=== PATIENT | female | born 1985 | race Caucasian/White ===

== ENCOUNTER 2021-02-06 03:01 | Outpatient (CLI) | payer MEDICAID, SELFPAY | END 2021-02-06 03:02 | disposition home or self-care (01) | LOC: LBO 03:01 | PROVIDERS: PCP Family Medicine; Visit Provider Family Medicine | DX: E03.9 Hypothyroidism, unspecified (principal) | CPT/HCPCS: 36415; 84443 ==

== ENCOUNTER 2024-11-20 17:32 | Emergency (ER) | payer MEDICAID, SELFPAY ==
[2024-11-20 17:41] VITALS: BP 135/68; PULSE 83; RESP 16; TEMP 36.7; O2SAT 98
--- NOTE | 2024-11-20 18:29 | ED.GENADUL_ITS ---
Discharge Plan Disposition Patient Disposition: Home Condition: Good Discharge Details Clinical Impression: Upper respiratory virus Primary Care Provider: Sarah Posada ED Provider: Laney Wilhelm Home Meds and New Rx's Prescriptions: Continued omeprazole 20 MG tablet,delayed release (DR/EC) 20 mg PO DAILY levothyroxine 100 MCG recon soln 50 mcg PO DAILY Discharge Instructions Instructions: Upper Respiratory Infection ED Additional Instructions: Tylenol and ibuprofen over the counter for symptoms; follow the directions on the bottle. Return to the emergency department for new or worsening symptoms including fever, chest pain, difficulty breathing, feeling like you are going to pass out, inability to swallow fluids, or if you have any other concerns. Stand Alone Forms: Work Release HPI General Mode of arrival: ambulatory . Date/Time Provider Initiated Documentation: 11/20/24 17:34 . Limitations to Documentation: no limitations . Information obtained by: patient . HPI Narrative: 39yo F with hx hypothryoid presenting for cough and sore throat. Sore throat started about 10 days ago, pain with swallowing. No difficulty with fluids or secretions. Minimal appetite so not eating much, is a little painful with swallowing solids but not bad. For about a week has had frequent cough and some shortness of breath. No chest pain. No fevers. Otherwise in her usual state of health. Related Data Home Medications ?Medication ?Instructions ?Recorded ?Confirmed levothyroxine 100 mcg intravenous 50 mcg PO DAILY 07/11/17 11/20/24 powder for solution omeprazole 20 mg tablet,delayed 20 mg PO DAILY 07/11/17 11/20/24 release Allergies Allergy/AdvReac Type Severity Reaction Status Date / Time bacitracin (From Neosporin Allergy Skin Rash Unverified 11/20/24 17:44 ([id number])) bacitracin zinc (From Allergy Skin Rash Unverified 11/20/24 17:44 Neosporin (hhj-vho-[id number])) neomycin sulfate (From Allergy Skin Rash Unverified 11/20/24 17:44 Neosporin (fnl-umj-bjzui)) polymyxin B (From Neosporin Allergy Skin Rash Unverified 11/20/24 17:44 (tps-[id number])) General Stated Complaint: RespSymp LINDA: 4 Review of Systems Narrative: see HPI Exam Narrative Exam Narrative: General: Alert, well appearing, well nourished, in no acute distress. Head: Normocephalic, atraumatic Neck: Trachea midline, ?Neck supple. ENT: ?MMM.? No oropharygeal lesions or exudate. Cardiac: ?RRR, no murmurs appreciated Resp: No respiratory distress. CTAB. Extremities: ?No deformities.? Neurologic: GCS 15. ? Moves all extremities freely against gravity Course Vital Signs Vital signs: Vital Signs Temperature 36.7 C 11/20/24 17:41 Pulse 83 11/20/24 17:41 Respiratory Rate 16 11/20/24 17:41 Blood Pressure 135/68 11/20/24 17:41 Pulse Oximetry 98 11/20/24 17:41 Temperature 36.7 C 11/20/24 17:41 Pulse 83 11/20/24 17:41 Respiratory Rate 16 11/20/24 17:41 Blood Pressure 135/68 11/20/24 17:41 Pulse Oximetry 98 11/20/24 17:41 Pain Level 3 11/20/24 17:41 Medical Decision Making 39yo F with hx hypothyroid presenting for cough and sore throat for a pproximately a week. Here with her son who is sick with similar symptoms; she is more concerned about her son's symptoms than her own. Vital signs reassuring on arrival. Well appearing on exam with lungs CTAB. Not concerning for sepsis, pneumonia, epiglottis, deep space neck infection, ACS. No indication for labs or imaging. Will send respiratory viral swabs. Covid and flu negative; son did test positive for flu and suspect that Ms. Goode also had this however given duration of symptoms is now appropriately testing negative. Vital signs remain reassuring. Advised symptomatic treatment at home. Discharged home; discharge instructions and return precautions were reviewed with patient who verbalized understanding. All questions were answered and they are in full agreement with the plan. Quality:SDOH Health Related Social Needs: No Data to Display PFSH All Active Problems (Updated 11/20/24 @ 19:09 by Laney Wilhelm MD) Upper respiratory virus (Acute) Social History Smoking/Tobacco Use Status: Current every day Tobacco Type: e-cigarettes Smoking risk assessment performed?: Yes Alcohol Intake: current Alcohol Intake frequency: holidays/special occasions only Drug use: Never Substance use type: does not use Do you feel safe at home: Yes Do you feel safe in your relationship?: Yes
--- OUTSIDE RECORDS SUMMARY | 2024-11-20 18:40 | XMS_ITS | Encounter Summary ---
Author Organization [facility] [place] [address] Care Team Providers Care Assembly Line Inspector Name Role Phone Omero Manzanares DO Primary Care Provider [phone] Encounter Details Date Type Department Care Team (Late st Contact Info) Description 05/18/2016 Orders [place] [address] Van Davis MD [facility] [place] [address] Weight loss Social History Tobacco Use Types Packs/Day Years Used Date Smoking Tobacco: Every Day Cigarettes Sex and Gender Information Value Date Recorded Sex Assigned at Not on file Gender Identity Not on file Sexual Orientation Not on file documented as of this encounter Plan of Treatment Not on file documented as of this encounter Results * Hemoglobin A1c (05/18/2016 3:05 PM EDT) [facility] Hemoglobin A1c 5.4 4.3 - 5.6 % [facility] Comment: Reference Range: 4.3 - 5.6% 5.7 - 6.4% - Increased Risk of Developing Diabetes Mellitus >=6.5% - Consistent with diagnosis of Diabetes Mellitus In the absence of hyperglycemia (i.e. plasma glucose > 200 mg/dL) or classic symptoms of hyperglycemia a repeat measurement of HbA1c should be performed on a separate sample to confirm the diagnosis. Diagnosis and Classification of Diabetes Mellitus, Diabetes Care 2013; 36: Suppl. 1, S67-74 Estimated Average Glucose 108 mg/dL [facility] Comment: eAG equivalents for HbA1c percentages: HbA1c(%) ?eAG(mg/dL) 6.0 ?126 6.5 ?140 7.0 ?154 7.5 ?169 8.0 ?183 8.5 ?197 9.0 ?212 9.5 ?226 10.0 ? 240 Limitations: The eAG calculation has not been validated on women, individuals below 18 years old and above 70 years old, and individuals with hemoglobinopathies. Additional resources are available on the ADA website: http://[employer].com/DHMCadacalc Linus HAJI, Caleb J, Claudia R, et al. ??Translating the A1C assay into estimated average glucose values. ??Diabetes Care 2008:31(8):3737-3943. Blood specimen (specimen) 05/18/2016 3:05 PM EDT 05/18/2016 3:24 PM EDT Narrative Resulting Agency Comment Spec In Lab Van Davis MD CHEMISTRY ORDERABLES [facility] [place] [address] documented in this encounter Visit Diagnoses Diagnosis Weight loss Loss of weight documented in this encounter Care Teams Assembly Line Inspector Relationship Specialty Start Date End Date Omero Manzanares DO PCP - General General Internal Medicine 04/29/16 documented as of this encounter
--- OUTSIDE RECORDS SUMMARY | 2024-11-20 18:40 | XMS_ITS | Encounter Summary ---
Author Organization [facility] Address [address] [place] [address] Care Team Providers Care Railroad Signal And Switch Operator Name Role Phone Unknown, Provider Primary Care Provider Estella ilpaulette Encounter Details Date Type Department Care Team (Late st Contact Info) Description 07/09/2010 Results Only [facility] [phone] Rex Uribe, DYNAMO TENDER [address] [address] Social History Tobacco Use Types Packs/Day Years Used Date Smoking Tobacco: Never Assessed Comments Unknown Sex and Gender Information Value Date Recorded Sex Assigned at Not on file Legal Sex Female 18:46 EST Gender Identity Not on file Sexual Orientation Not on file documented as of this encounter Plan of Treatment Not on file documented as of this encounter Procedures Procedure Name Priority Date/Time Associated Diagnosis Comments CYTOPATHOLOGY Routine 07/09/2010 0:00 EDT documented in this encounter Results * CYTOPATHOLOGY (07/09/2010 0:00 EDT) Pathology Report: CYTOPATHOLOGY REPORT ? Reports generated via electronic interface contain original data; ? however they are lacking the format of the original report. ? Caution should be taken when reading/interpreti ng unformatted reports. ? Name: ? BEAUCAGE, CRYSTAL ? Accession #: ? [id number] ? : ? 1985 (Age: 24) ??F ?Collect Date: ? 07/09/2010 ? Location: ? [facility] ? Receive Date: ? 07/13/2010 ? Provider: ?REX J LEANNE DYNAMO TENDER ? Copy to: ? Specimen/Source: ?Pap Test, Cervix/Endocervix, ThinPrep Imaging System ? with manual evaluation ? Last Menstrual Period: ? Hormonal/Contracep tive Status: ? Intrauterine device ? Other: ? HPVA - HPV testing requested if ASC-US on the current ThinPrep Pap test. ? SPECIMEN ADEQUACY ? Satisfactory for Evaluation ? - transformation zone component present ? GENERAL CATEGORIZATION ? Negative for Intraepithelial Lesion or Malignancy ? INTERPRETATION ? Shift in romel present suggestive of bacterial vaginosis. ? Document reviewed and electronically signed by: ? Flor Adams, SCT(ASCP) ? Report Date: ??07/14/2010 15:13 ? End of Report ? [facility] 07/09/2010 07/13/2010 us Rex Uribe APRN PATHOLOGY ORDERABLES Final Re sult [facility] [address] [place] [address] documented in this encounter Visit Diagnoses Not on filedocumented in this encounter Care Teams Railroad Signal And Switch Operator Relationship Specialty Start Date End Date Unknown, Provider, PCP - General 07/03/09 09/19/16 documented as of this encounter
--- OUTSIDE RECORDS SUMMARY | 2024-11-20 18:40 | XMS_ITS | Referral Summary ---
Author Organization [facility] Address [address] [place] [address] Care Team Providers Care Malt House Supervisor Name Role Phone Omero Manzanares DO Primary Care Provider [phone] Social History Tobacco Use Types Packs/Day Years Used Date Smoking Tobacco: Never Assessed Interpersonal Safety Answer Date Record ed Physically Hurt Never 06/01/2020 Verbally Threaten Not on file 06/01/2020 Comments Unknown Sex and Gender Information Value Date Recorded Sex Assigned at Not on file Legal Sex Female 18:46 EST Gender Identity Not on file Sexual Orientation Not on file Plan of Treatment Not on file Care Teams Malt House Supervisor Relationship Specialty Start Date End Date Omero Manzanares DO [address] [place] [address] PCP - General 09/20/16
--- OUTSIDE RECORDS SUMMARY | 2024-11-20 18:40 | XMS_ITS | Encounter Summary ---
Author Organization [facility] Address [address] [place] [address] Care Team Providers Care Electronic Lab Technician Name Role Phone Omero Manzanares DO Primary Care Provider [phone] Encounter Details Date Type Department Care Team (Latest Contact Info) Description 01/03/2019 8:19 EST - 01/03/2019 23:59 EST Hospital Encounter [address] [address] Unknown, Provider, MD Discharge Disposition: Home or Self Care Social History Tobacco Use Types Packs/Day Years Used Date Smoking Tobacco: Never Assessed Comments Unknown Sex and Gender Information Value Date Recorded Sex Assigned at Not on file Legal Sex Female 18:46 EST Gender Identity Not on file Sexual Orientation Not on file documented as of this encounter Discharge Disposition Disposition Code Departure Means Destination Home or Self Retirement documented in this encounter Plan of Treatment Not on file documented as of this encounter Visit Diagnoses Not on filedocumented in this encounter Care Teams Electronic Lab Technician Relationship Specialty Start Date End Date Omero Manzanares DO [address] [place] [id number] PCP - General 09/20/16 documented as of this encounter
--- OUTSIDE RECORDS SUMMARY | 2024-11-20 18:40 | XMS_ITS | Encounter Summary ---
Author Organization [facility] Address [facility] [place] [address] Care Team Providers Care Patient Support Assistant Name Role Phone Omero Manzanares DO Primary Care Provider [phone] Reason for Visit * Consultation (Routine) - Closed Specialty Diagnoses / Procedures Referred By Harish nguyen Referred To Contact Endocrinology Diagnoses uncontrolled TSH levels Hypothyroidism Omero Manzanares DO [address] [place] [address] [facility] [address] [place] [id number] Referral ID Status Reason Start Date Expiration Date V isits Requested Visits Authorized [id number] Closed Consult, [facility] PCP Updated and/or Approved 04/30/2016 04/30/2017 1 1 Encounter Details Date Type Department Care Team (Late st Contact Info) Description 05/18/2016 1:40 PM EDT Office [place] [address] Van Davis MD [facility] [place] [address] Hypothyroidism, unspecified type; Weight loss; Chronic fatigue Social History Tobacco Use Types Packs/Day Years Used Date Smoking Tobacco: Every Day Cigarettes Sex and Gender Information Value Date Recorded Sex Assigned at Not on file Gender Identity Not on file Sexual Orientation Not on file documented as of this encounter Last Filed Vital Signs Vital Sign Reading Time Taken Comments Blood Pressure 109/64 05/18/2016 1:54 PM EDT Pulse 54 05/18/2016 1:54 PM EDT Temperature - - Respiratory Rate - - Oxygen Saturation - - Inhaled Oxygen Concentration - - Weight 60.6 kg (133 lb 9.6 oz) 05/18/2016 1:54 P M EDT Height 165.1 cm (5' 5) 05/18/2016 1:54 PM EDT Body Mass Index 22.23 05/18/2016 1:54 PM EDT documented in this encounter Progress Notes * Van Davis MD - 05/18/2016 1:40 PM EDT Subjective: Patient ID: Matilde Goode is a 30 y.o. female who comes in on the request of her primary care provider and with her and niece to discuss her history of hypothyroidism. She said that in October of 2015, she had a routine exam. At that time she had some symptoms, including some fatigue and perhaps the beginnings of some weight loss. At that time she was noted to have hypothyroidism (the highest TSH I could find is around 23). She therefore was started on 50, then 75, and eventually 100 mcg of levothyroxine that she is taking on an empty stomach. Over the last few months, she has started to get more fatigued, as at times almost passed out. She said occasionally she has noticed some fast heart rate. She has also felt foggy. As mentioned above, she has noted that she has been very fatigued. The estimated weight loss that she has had is approximately 10 pounds. (Of note is the fact that a lot of the history is answered by her , who was very anxious during the visit and pacing around the room and would tend to answer questions before Matilde got a chance to answer them.) She has not had any increased GI bowel movements or any other GI symptoms. She does mention that she never feels well, has some aches and pains. Review of systems is negative for any heart disease, lung disease, kidney problems, seizures, convulsions, diabetes. Generally has been relatively healthy. There was no mention of any significant depression, although I did not delve into that in great detail. She has not noticed any hyperpigmentation. HABITS: She smokes about half pack a day. Does not use any alcohol or other drugs. Wears seatbelts. SOCIAL HISTORY: She is , has 3 children, 7, 6 and 4. 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 FAMILY HISTORY: Her father had diabetes and of heart failure. . HPI Review of Systems Objective: Physical Exam Constitutional: She is oriented to person, place, and time. She appears well- developed and well-nourished. Thin but healthy appearing. Eyes: Right eye exhibits no discharge. Left eye exhibits no discharge. No scleral icterus. Neck: No thyromegaly present. Palpable but small thyroid. Cardiovascular: Normal rate, regular rhythm and normal heart sounds. Pulmonary/Chest: Effort normal and breath sounds normal. No respiratory distress. She has no wheezes. Abdominal: She exhibits no distension. There is no tenderness. Musculoskeletal: She exhibits no edema. Lymphadenopathy: She has no cervical adenopathy. Neurological: She is alert and oriented to person, place, and time. Psychiatric: She has a normal mood and affect. Her behavior is normal. Judgment and thought contentnormal. BP 109/64 Pulse 54 Ht 165.1 cm (5' 5) Wt 60.6 kg (133 lb 9.6 oz) BMI 22.23 kg/m2 No skin hyperpigmentation. Assessment and Plan: Matilde comes in to discuss mostly her hypothyroidism. It is unclear to me exactly how high her TSH was when she was first diagnosed, but I did see one as high as 23. She is now on levothyroxine 100 mcg a day and has been on this dose, taking it appropriately for at least a month. Therefore, we will recheck her thyroid tests today. I suspect, considering her size, 100 once a day should be enough. If she is still hypothyroid, then will need to consider problems of absorption. Will check a TTG to rule out celiac disease, although she is not having any GI symptoms. Also concerning is the fact that she has had some weight loss. She said her peak weight was about 155 pounds (non). She is now down 133 pounds and has some tiredness. She does not have any skin hyperpigmentation to suggest primary adrenal insufficiency, but we will check a morning cortisol and ACTH level at a local lab rule out adrenal insufficiency. I told Matilde that I would get back in touch with her as soon as I get back all of her lab studies. She did mention feeling lightheaded and feeling a fast pulse at some point. Although I do not think this would explain her weight loss, I wonder if she is having any episodes of a tachyarrhythmia that could cause some lightheadedness. I have not made an appointment to see her in followup. I will wait for the results of the testing before making a decision concerning followup. I will also send a copy of this note to Dr. Manzanares. cc: Dr. Manzanares documented in this encounter Plan of Treatment Not on file documented as of this encounter Procedures Procedure Name Priority Date/Time Associated Diagnosis Comments THYROID PEROXIDASE ANTIBODY Routine 05/18/2016 3:05 PM EDT Hypothyroidism, unspecified type Weight loss TISSUE TRANSGLUTAMINASE, IGA Routine 05/18/2016 3:05 PM EDT Hypothyroidism, unspecified type Weight loss CRP, CARDIAC RISK (HS CRP) Routine 05/18/2016 3:05 PM EDT Hypothyroidism, unspecified type Weight loss TSH STAT 05/18/2016 3:05 PM EDT Hypothyroidism, unspecified type Weight loss T4, FREE STAT 05/18/2016 3:05 PM EDT Hypothyroidism, unspecified type Weight loss HEMOGLOBIN A1C STAT 05/18/2016 3:05 PM EDT Weight loss GLUCOSE Routine 05/18/2016 3:05 PM EDT documented in this encounter Results * Glucose, random (05/18/2016 3:05 PM EDT) Glucose 81 65 - 199 mg/dL [facility] Comment:Diabetes: >=200 mg/d L plus symptoms Blood specimen (specimen) Venous Draw / Unknown 05/18/2016 3:05 PM EDT 05/18/2016 3:23 PM EDT Narrative Resulting Agency Comment Spec In Lab Van Davis MD CHEMISTRY ORDERABLES [facility] [place] [address] * Hemoglobin A1c (05/18/2016 3:05 PM EDT) Hemoglobin A1c 5.4 4.3 - 5.6 % [facility] Comment: Reference Range: 4.3 - 5.6% [...] Mellitus, Diabetes Care 2013; 36: Suppl. 1, S67-15 Estimated Average Glucose 108 mg/dL [facility] Comment: eAG equivalents for HbA1c percentages: HbA1c(%) ?eAG(mg/dL) 6.0 ?126 6.5 ?140 7.0 ?154 7.5 ?169 8.0 ?183 8.5 ?197 9.0 ?212 9.5 ?226 10.0 ? 240 Limitations: The eAG calculation has not been validated on women, individuals below 18 years old and above 70 years old, and individuals with hemoglobinopathies. Additional resources are available on the ADA website: http://[employer].com/DHMCadacalc Lnius HAJI, Caleb J, Claudia R, et al. ??Translating the A1C assay into estimated average glucose values. ??Diabetes Care 2008:31(8):8492-2604. Blood specimen (specimen) 05/18/2016 3:05 PM EDT 05/18/2016 3:24 PM EDT Narrative Resulting Agency Comment Spec In Lab Van Davis MD CHEMISTRY ORDERABLES Performing Organization Address [facility] Co de Phone Number [facility] [place] [address] * TSH (05/18/2016 3:05 PM EDT) Thyroid Stimulating Hormone 1.53 0.27 - 4.20 mcIU/mL [facility] Blood specimen (specimen) 05/18/2016 3:05 PM EDT 05/18/2016 3:23 PM EDT Narrative Resulting Agency Comment Spec In Lab Van Davis MD CHEMISTRY ORDERABLES Performing Organization Address [facility] Co de Phone Number [facility] [place] [address] * Tissue transglutaminase, IgA (05/18/2016 3:05 PM EDT) TTG IgA Ab 0.2 0.1 - 10.0 u/ml [facility] Comment: New methodology as of 03-04-2015 Negative = <7 U/mL Equivocal = 7-10 U/mL Positive = >10 U/mL Blood specimen (specimen) 05/18/2016 3:05 PM EDT 05/19/2016 7:56 AM EDT Narrative Resulting Agency Comment Spec In Lab Van Davis MD IMMUNOLOGY ORDERABLE S Performing Organization Address [facility] Co de Phone Number [facility] [place] [address] * (ABNORMAL) Thyroid peroxidase antibody (05/18/2016 3:05 PM EDT) Thyroperoxidase Ab 993(H) <=34 IU/mL [facility] Blood specimen (specimen) 05/18/2016 3:05 PM EDT 05/19/2016 7:56 AM EDT Narrative Resulting Agency Comment Spec In Lab Van Davis MD IMMUNOLOGY ORDERABLE S Performing Organization Address [facility]/ZIP Co de Phone Number [facility] [place] [address] * T4, free (05/18/2016 3:05 PM EDT) Free T4 1.61 0.93 - 1.70 ng/dL [facility] Blood specimen (specimen) 05/18/2016 3:05 PM EDT 05/18/2016 3:23 PM EDT Narrative Resulting Agency Comment Spec In Lab Van Davis MD CHEMISTRY ORDERABLES Performing Organization Address [facility] Co de Phone Number [facility] [place] [address] * High Sensitivity CRP (05/18/2016 3:05 PM EDT) C-Reactive Protein High Sensitivity 0.5 mg/L [facility] Comment: Interpretations: 1) For accurate cardiac risk assessment, the average of 2 values >2 weeks apart should be obtained (ref 1&2). A value >10 mg/L indicates an inflammatory condition, concentrations >10 mg/L should not be used for cardiac risk assessment. ?<1.0 mg/L: low risk ?1.0 - 3.0 mg/L: moderate risk ?>3.0 mg/L: high risk groups for future cardiovascular events 2) The general reference range of apparently healthy individuals using this test is <5.0 mg/L (derived from the test package insert) References: 1. Swetha MOSS et. al. ??AHA/CDC Scientific Statement: Markers of Inflammation and Cardiovascular Disease. ??Circulation 2003; 107:499-511 2. Ridker PM. ??Clinical applications of C-reactive protein for cardiovascular disease detection and prevention. ??Circulation 2003; 107:363-369 Blood specimen (specimen) 05/18/2016 3:05 PM EDT 05/18/2016 3:23 PM EDT Narrative Resulting Agency Comment Spec In Lab Van Davis MD CHEMISTRY ORDERABLES [facility] [place] [address] documented in this encounter Visit Diagnoses Diagnosis Hypothyroidism, unspecified type Weight loss Loss of weight Chronic fatigue Other malaise and fatigue documented in this encounter Care Teams Patient Support Assistant Relationship Specialty Start Date End Date Omero Manzanares DO PCP - General General Internal Medicine 04/29/16 documented as of this encounter
--- OUTSIDE RECORDS SUMMARY | 2024-11-20 18:40 | XMS_ITS | Encounter Summary ---
Author Organization [facility] [place] [address] Care Team Providers Care Cardiology Technician Name Role Phone Omero Manzanares DO Primary Care Provider [phone] Encounter Details Date Type Department Care Team (Late st Contact Info) Description 05/18/2016 Orders [place] [address] Van Davis MD [facility] [place] [address] Weight loss Social History Tobacco Use Types Packs/Day Years Used Date Smoking Tobacco: Every Day Cigarettes Sex and Gender Information Value Date Recorded Sex Assigned at Not on file Gender Identity Not on file Sexual Orientation Not on file documented as of this encounter Plan of Treatment Not on file documented as of this encounter Visit Diagnoses Diagnosis Weight loss Loss of weight documented in this encounter Care Teams Cardiology Technician Relationship Specialty Start Date End Date Omero Manzanares DO PCP - General General Internal Medicine 04/29/16 documented as of this encounter
--- OUTSIDE RECORDS SUMMARY | 2024-11-20 18:40 | XMS_ITS | Encounter Summary ---
Author Organization [facility] Address [address] [place] [address] Care Team Providers Care Wafer Polisher Name Role Phone Unknown, Provider Primary Care Provider Unava ilable Encounter Details Date Type Department Care Team (Late st Contact Info) Description 08/16/2011 Results Only [facility] - [facility] ([facility]) [address], [place] [id number] Freeman Negro MD [address] [place] [address] Social History Tobacco Use Types Packs/Day Years [...] Procedure Name Priority Date/Time Associated Diagnosis Comments SURGICAL PATHOLOGY Routine 08/16/2011 0:00 EDT documented in this encounter Results * SURGICAL PATHOLOGY (08/16/2011 0:00 EDT) Pathology Report: SURGICAL PATHOLOGY REPORT Reports generated via electronic interface contain original data; however they are lacking the format of the original report. Caution should be taken when reading/interpreti ng unformatted reports. Name: ? MATILDE GOODE ? Accession #: ? [id number] ? : ? 1985 (Age: 25) ??F ? Collect Date: ? 08/16/2011 ? Location: ? [facility] ? Receive Date: ? 08/16/2011 ? Provider: FREEMAN NEGRO MD Copy to: ? Final Pathologic Diagnosis: A. ?Fallopian tube, left, segmental resection: 1. ?Fallopian tube with no specific pathologic features. 2. ? Complete cross sections are identified. B. ?Fallopian tube, right, segmental resection: 1. ?Fallopian tube with no specific pathologic features. 2. ? Complete cross sections are identified. Document reviewed and electronically signed by: KYLE HOLDEN MD Report ??Date: 08/18/2011 15:57 By the signature above, the attending physician certifies that he/she has personally conducted a gross and/or microscopic examination of the described specimens and rendered or confirmed the above diagnosis. Specimen(s) Received: A. ?Partial left fallopian tube B. ? Partial right fallopian tube Clinical History: ? Desired sterilization Gross Description: ? Received in formalin labelled [place], Crystal and A ??partial L fallopian tube is a 4.0 cm in length by 0.5 cm in diameter tubular segment of firm tissue which has a generally smooth, brown serosa. ??Two litigation claim representative cross sections are submitted as (A). Received in formalin labelled [place], Crystal and B ??portion R fallopian tube is a 3.7 cm in length by 0.5 cm in diameter tubular segment of firm tissue which has a generally smooth, brown serosa. ??Two litigation claim representative cross sections are submitted as (B). ??(Tessa Thomas/jesse ?? End of Report [facility] 08/16/2011 08/16/2011 16: 06 EDT us Freeman Negro MD PATHOLOGY ORDERABLES Final Res ult [facility] [address] [place] [address] documented in this encounter Visit Diagnoses Not on filedocumented in this encounter Care Teams Wafer Polisher Relationship Specialty Start Date End Date Unknown, Provider, PCP - General 07/03/09 09/19/16 documented as of this encounter
--- OUTSIDE RECORDS SUMMARY | 2024-11-20 18:40 | XMS_ITS | Encounter Summary ---
Author Organization [facility] [place] [place] [address] Care Team Providers Care Clocksmith Name Role Phone Omero Manzanares DO Primary Care Provider [phone] Encounter Details Date Type Department Care Team (Late st Contact Info) Description 05/27/2016 External Results Endocrinology at [facility] [place] [address] Van Davis MD [facility] [place] [address] Hypothyroidism, unspecified type; Weight loss Social History Tobacco Use Types Packs/Day Years Used Date Smoking Tobacco: Every Day Cigarettes Sex and Gender Information Value Date Recorded Sex Assigned at Not on file Gender Identity Not on file Sexual Orientation Not on file documented as of this encounter Plan of Treatment Not on file documented as of this encounter Procedures Procedure Name Priority Date/Time Associated Diagnosis Comments CORTISOL Routine 05/19/2016 Hypothyroidism, unspecified type Weight loss documented in this encounter Results * (ABNORMAL) Cortisol (05/19/2016) Cortisol 6.34(Viscose Department Worker al Lab) Blood specimen (specimen) 05/19/2016 Van Davis MD CHEMISTRY ORDERABLES documented in this encounter Visit Diagnoses Diagnosis Hypothyroidism, unspecified type Weight loss Loss of weight documented in this encounter Care Teams Clocksmith Relationship Specialty Start Date End Date Omero Manzanares DO PCP - General General Internal Medicine 04/29/16 documented as of this encounter
--- OUTSIDE RECORDS SUMMARY | 2024-11-20 18:40 | XMS_ITS | Clinical Summary ---
Author Organization [facility] Address [facility] [place] [address] Care Team Providers Care Dental Appliance Fixer Name Role Phone Omero Manzanares Primary Care Provider [phone] Allergies No known active allergies Medications Medication Sig Dispensed Refills Start Date End Date Status levothyroxine (SYNTHROID) 100 mcg Tablet Take 100 mcg by mouth daily. Active Social History Tobacco Use Types Packs/Day Years Used Date Smoking Tobacco: Every Day Cigarettes Sex and Gender Information Value Date Recorded Sex Assigned at Not on file Gender Identity Not on file Sexual Orientation Not on file Last Filed Vital Signs Vital Sign Reading [...] Mass Index 22.23 05/18/2016 1:54 PM EDT Plan of Treatment Health Maintenance Due Date Last Done Comments HIV screen 2004 Hepatitis C Screening 2004 Lipid Screening 2004 Hepatitis B vaccine (0-59 yrs) (1) 2005 Tetanus/Diphtheria/Pertussis Vaccines (1 - Tdap) 10/07 HPV test 2016 PAP Smear 2016 Covid-19 Vaccine (1 - 2023-25 season) 2024 Influenza (Flu) vaccine (1 o f 1 - Influenza standard series) 07/01/2024 Care Teams Dental Appliance Fixer Relationship Specialty Start Date End Date Omero Manzanares DO PCP - General General Internal Medicine 04/29/16
--- OUTSIDE RECORDS SUMMARY | 2024-11-20 18:40 | XMS_ITS | Encounter Summary ---
Author Organization [facility] Address [address] [place] [address] Care Team Providers Care Rn Rehab Name Role Phone Unknown, Provider Primary Care Provider Estella santos Encounter Details Date Type Department Care Team (Late st Contact Info) Description 07/01/2009 Orders Only [facility] - [facility] [place] [address] [place] [address] Brendan Whalen ARNP [address] [place] [address] Social History Tobacco Use Types Packs/Day Years [...] Priority Date/Time Associated Diagnosis Comments CYTOPATHOLOGY Routine 07/01/2009 0:00 EDT documented in this encounter Results * CYTOPATHOLOGY (07/01/2009 0:00 EDT) Pathology Report: CYTOPATHOLOGY REPORT ? Reports generated via electronic interface contain original data; ? however they are lacking the format of the original report. ? Caution should be taken when reading/interpreti ng unformatted reports. ? Name: ? BEAUCAGE, CRYSTAL ? Accession #: ? [id number] ? : ? 1985 (Age: 23) ??F ?Collect Date: ? 07/01/2009 ? Location: ? [facility] ? Receive Date: ? 07/03/2009 ? Provider: ?BRENDAN VILLAGRAN ? Copy to: ? Specimen/Source: ?Pap Test, Cervix/Endocervix, ThinPrep Imaging System ? with manual evaluation ? Last Menstrual Period: ? Menstrual/Pregnanc y Status: ? Other: ? HPVA - HPV testing requested if ASC-US on the current ThinPrep Pap test. ? SPECIMEN ADEQUACY ? Satisfactory for Evaluation ? - transformation zone component present ? GENERAL CATEGORIZATION ? Negative for Intraepithelial Lesion or Malignancy ? Document reviewed and electronically signed by: ? Nidia Guerralogg, CT(ASCP) ? Report Date: ??07/10/2009 12:02 ? End of Report ? [facility] 07/01/2009 07/03/2009 us Brendan VILLAGRAN PATHOLOGY ORDERABLES Quita hans Result [facility] [address] [place] [address] documented in this encounter Visit Diagnoses Not on filedocumented in this encounter Care Teams Rn Rehab Relationship Specialty Start Date End Date Unknown, Provider, PCP - General 07/03/09 09/19/16 documented as of this encounter
--- OUTSIDE RECORDS SUMMARY | 2024-11-20 18:40 | XMS_ITS | Encounter Summary ---
Author Organization [facility] Address [address] [place] [address] Care Team Providers Care Sterile Preparation Technician Name Role Phone Omero Manzanares DO Primary Care Provider [phone] Encounter Details Date Type Department Care Team (Late st Contact Info) Description 01/03/2019 Results Only [facility] [phone] Crystal Schmitt MD [address] [place] [address] Social History Tobacco Use Types Packs/Day Years [...] Date/Time Associated Diagnosis Comments SURGICAL PATHOLOGY Routine 01/03/2019 8:53 EST documented in this encounter Results * SURGICAL PATHOLOGY (01/03/2019 8:53 EST) Pathology Report: SURGICAL PATHOLOGY REPORT Reports generated via electronic interface contain original data; however they are lacking the format of the original report. Caution should be taken when reading/interpret ing unformatted reports. Name: ? MATILDE GOODE ? Accession #: ? [id number] ? : ? 1985 (Age: 33) ??F ? Collect Date: ? 01/03/2019 ? Location: ? [facility] ? Receive Date: ? 01/03/2019 ? Provider: CRYSTAL SCHMITT MD Copy to: ? Final Pathologic Diagnosis: GALLBLADDER, CHOLECYSTECTOMY: - Chronic cholecystitis. - Cholelithiasis. Document reviewed and electronically signed by: EVGENY CALLAHAN MD Report ??Date: 01/08/2019 15:56 By the signature above, the attending physician certifies that he/she has personally conducted a gross and/or microscopic examination of the described specimens and rendered or confirmed the above diagnosis. Specimen(s) Received: Gallbladder Clinical History: Hydrops of gallbladder; clinical diagnosis code: ??K80.10 Gross Description: ? Received in formalin labelled with proper patient identification (initials B, C) and gallbladder is a previously disrupted gallbladder (9.5 x 2.0 x 1.5 cm) with an attached segment of cystic duct (0.4 cm in length x 0.2 cm in diameter). ? The serosa is brown-thakur and smooth. The mucosa is brown-red, granular, and focally covered by brown-yellow purulent material and the wall is 0.3 cm in thickness. The cystic duct lumen is obstructed by choleliths. The cystic duct margin is inked blue. Multiple brown-black friable choleliths are present measuring 5.5 x 4.0 x 1.0 cm in aggregate. ? Two account service representative sections and the inked en face cystic duct margin are submitted in 1. Dr. King 01/04/2019 2:02 PM End of Report [facility] 01/03/2019 8:53 EST 01/03/2019 8:53 EST us Crystal Schmitt MD PATHOLOGY ORDERABLES Final Resul t [facility] [address] [place] [address] documented in this encounter Visit Diagnoses Not on filedocumented in this encounter Care Teams Sterile Preparation Technician Relationship Specialty Start Date End Date Omero Manzanares DO [address] [place] [address] PCP - General 09/20/16 documented as of this encounter
--- OUTSIDE RECORDS SUMMARY | 2024-11-20 18:40 | XMS_ITS | Clinical Summary ---
Author Organization [facility] Address [address] [place] [address] Care Team Providers Care Diesel Tractor Engine Mechanic Name Role Phone Omero Manzanares DO Primary Care Provider [phone] Social History Tobacco Use Types Packs/Day Years Used Date Smoking Tobacco: Never Assessed Interpersonal Safety Answer Date Record ed Physically Hurt Never 06/01/2020 Verbally Threaten Not on file 06/01/2020 Comments Unknown Sex and Gender Information Value Date Recorded Sex Assigned at Not on file Legal Sex Female 18:46 EST Gender Identity Not on file Sexual Orientation Not on file Plan of Treatment Health Maintenance Due Date Last Done Comments Hepatitis C Screen 1985 Hepatitis B Vaccine (1 of 3 - 19+ 3-dose series) 10/07 COVID-19 Vaccine ( season) 2024 Care Teams Diesel Tractor Engine Mechanic Relationship Specialty Start Date End Date Omeor Manzanares DO [address] [place] [address] PCP - General 09/20/16
--- OUTSIDE RECORDS SUMMARY | 2024-11-20 18:40 | XMS_ITS | Encounter Summary ---
Author Organization [facility] Address [address] [place] [address] Care Team Providers Care Director Power Name Role Phone Unknown, Provider Primary Care Provider Unava ilable Encounter Details Date Type Department Care Team (Late st Contact Info) Description 09/16/[address] [facility]- [facility] [phone] Bairon Kumari MD [address] [facility] [address] [place] [address] Social History Tobacco Use Types Packs/Day Years [...] Date/Time Associated Diagnosis Comments SURGICAL PATHOLOGY Routine 09/16/2016 15 :28 EST documented in this encounter Results * SURGICAL PATHOLOGY (09/16/2016 15:28 EST) Pathology Report: SURGICAL PATHOLOGY REPORT Reports generated via electronic interface contain original data; however they are lacking the format of the original report. Caution should be taken when reading/interpret ing unformatted reports. Name: ? MATILDE GOODE ? Accession #: ? [id number] ? : ? 1985 (Age: 30) ??F ? Collect Date: ? 09/16/2016 ? Location: ? [facility] ? Receive Date: ? 09/17/2016 ? Provider: JOY KUMARI MD Copy to: HEMALATHA WALTON DO ? Final Pathologic Diagnosis: A. SMALL INTESTINE, 2ND PORTION OF DUODENUM, BIOPSY: - ??Duodenal mucosa with no specific pathologic features. B. STOMACH, ANTRUM AND BODY, BIOPSY: - ??Gastric antral mucosa with reactive (chemical) gastropathy. - ??No histological evidence of H. pylori on H&E stain. C. ESOPHAGUS, DISTAL, BIOPSY: - ??Squamocolumnar junctional mucosa with features consistent with reflux esophagitis. - ??Negative for intestinal metaplasia or dysplasia. Document reviewed and electronically signed by: JAKE BENAVIDEZ MD Report ??Date: 09/20/2016 16:22 By the signature above, the attending physician certifies that he/she has personally conducted a gross and/or microscopic examination of the described specimens and rendered or confirmed the above diagnosis. Specimen(s) Received: A. ??2nd portion bx B. ??Antrum and body bx C. ??Distal esophagus bx Clinical History: Dyspepsia; clinical diagnosis code: ??R10.13 Gross Description: A. ?Received in formalin labelled with proper patient identification (initials B, C) and 2nd portion bx are two pink-brown tissues (0.2 and 0.3 cm in greatest dimension). Entirely submitted in A1. B. ?Received in formalin labelled with proper patient identification (initials B, C) and antrum and body bx is a single pink-brown tissue fragment (0.5 x 0.3 x 0.2 cm). Submitted intact in B1. C. ?Received in formalin labelled with proper patient identification (initials B, C) and distal esophagus bx is a single pink-brown tissue fragment (0.5 x 0.4 x 0.3 cm). Submitted intact in C1. Dr. Lara 09/17/2016 6:18 PM End of Report [facility] 09/16/2016 15:2 8 EST 09/17/2016 15:28 EST us Bairon Kumari MD PATHOLOGY ORDERABLES Final Resul t [facility] [address] [place] [address] documented in this encounter Visit Diagnoses Not on filedocumented in this encounter Care Teams Director Power Relationship Specialty Start Date End Date Unknown, Provider, PCP - General 07/03/09 09/19/16 documented as of this encounter
--- OUTSIDE RECORDS SUMMARY | 2024-11-20 18:40 | XMS_ITS | Encounter Summary ---
Author Organization [facility] [place] [address] Care Team Providers Care Refinery Operator Helper Crude Unit Name Role Phone Omero Manzanares DO Primary Care Provider [phone] Encounter Details Date Type Department Care Team (Late st Contact Info) Description 05/18/2016 Orders [place] [address] Van Davis MD [facility] [place] [address] Hypothyroidism, unspecified type; Weight loss Social History Tobacco Use Types Packs/Day Years Used Date Smoking Tobacco: Every Day Cigarettes Sex and Gender Information Value Date Recorded Sex Assigned at Not on file Gender Identity Not on file Sexual Orientation Not on file documented as of this encounter Plan of Treatment Not on file documented as of this encounter Results * (ABNORMAL) ACTH (05/19/2016) ACTH 16.5(Wagon Person al Lab) Blood specimen (specimen) 05/19/2016 Van Davis MD LAB SEND OUT ORDERAB LES * (ABNORMAL) Cortisol (05/19/2016) Cortisol 6.34([facility] Person al Lab) Blood specimen (specimen) 05/19/2016 Van Davis MD CHEMISTRY ORDERABLES * (ABNORMAL) Thyroid peroxidase antibody (05/18/2016 3:05 PM EDT) Thyroperoxidase Ab 993(H) <=34 IU/mL [facility] Blood specimen (specimen) 05/18/2016 3:05 PM EDT 05/19/2016 7:56 AM EDT Narrative Resulting Agency Comment Spec In Lab Van Davis MD IMMUNOLOGY ORDERABLE S [facility] [place] [address] * Tissue transglutaminase, IgA (05/18/2016 3:05 PM EDT) TTG IgA Ab 0.2 0.1 - 10.0 u/ml [facility] Comment: New methodology as of 03-04-2015 Negative = <7 U/mL Equivocal = 7-10 U/mL Positive = >10 U/mL Blood specimen (specimen) 05/18/2016 3:05 PM EDT 05/19/2016 7:56 AM EDT Narrative Resulting Agency Comment Spec In Lab Van Davis MD IMMUNOLOGY ORDERABLE S Performing Organization Address City/[facility]/ZIP Co de Phone Number [facility] [place] [address] * T4, free (05/18/2016 3:05 PM EDT) Free T4 1.61 0.93 - 1.70 ng/dL [facility] Blood specimen (specimen) 05/18/2016 3:05 PM EDT 05/18/2016 3:23 PM EDT Narrative Resulting Agency Comment Spec In Lab Van Davis MD CHEMISTRY ORDERABLES [facility] [place] [address] * High Sensitivity CRP (05/18/2016 3:05 PM EDT) C-Reactive Protein High Sensitivity 0.5 mg/L [facility] Comment: Interpretations: 1) For accurate [...] Davis MD CHEMISTRY ORDERABLES Performing Organization Address [facility]/[place] Co de Phone Number [facility] [place] [address] * TSH (05/18/2016 3:05 PM EDT) Thyroid Stimulating Hormone 1.53 0.27 - 4.20 mcIU/mL [facility] Blood specimen (specimen) 05/18/2016 3:05 PM EDT 05/18/2016 3:23 PM EDT Narrative Resulting Agency Comment Spec In Lab Van Davis MD CHEMISTRY ORDERABLES Performing Organization Address City/[facility]/ZIP Co de Phone Number [facility] [place] [address] documented in this encounter Visit Diagnoses Diagnosis Hypothyroidism, unspecified type Weight loss Loss of weight documented in this encounter Care Teams Refinery Operator Helper Crude Unit Relationship Specialty Start Date End Date Omero Manzanares DO PCP - General General Internal Medicine 04/29/16 documented as of this encounter
--- OUTSIDE RECORDS SUMMARY | 2024-11-20 18:40 | XMS_ITS | Encounter Summary ---
Author Organization [facility] [place] [address] Care Team Providers Care Cycling Instructor Name Role Phone Omero Manzanares DO Primary Care Provider [phone] Encounter Details Date Type Department Care Team (Late st Contact Info) Description 05/27/2016 External Results Endocrinology at [facility] [place] [address] Van Davis MD [facility] [address] Hypothyroidism, unspecified type; Weight loss Social History [...] Procedure Name Priority Date/Time Associated Diagnosis Comments ACTH Routine 05/19/2016 Hypothyroidism, unspecified type Weight loss documented in this encounter Results * (ABNORMAL) ACTH (05/19/2016) ACTH 16.5(Wrapping Clerk al Lab) Blood specimen (specimen) 05/19/2016 Van Davis MD LAB SEND OUT ORDERAB LES documented in this encounter Visit Diagnoses Diagnosis Hypothyroidism, unspecified type Weight loss Loss of weight documented in this encounter Care Teams Cycling Instructor Relationship Specialty Start Date End Date Omero Manzanares DO PCP - General General Internal Medicine 04/29/16 documented as of this encounter
== END 2024-11-20 19:14 | disposition home or self-care (01) ==
PROVIDERS: Emergency Provider Student in an Organized Health Care Education/Training Program; PCP Family Medicine
DX: J06.9 Acute upper respiratory infection, unspecified (principal); F17.290 Nicotine dependence, other tobacco product, uncomplicated
CPT/HCPCS: 99282; 99283